=== PATIENT | female | born 1995 | race Caucasian/White ===

== ENCOUNTER 2017-05-23 03:37 | Emergency (ER) | payer MEDICAID, OTHER ==
[~2017-05-23] VITALS: Ht 170.2 cm; Wt 64.4 kg
[~2017-05-23 03:37] MED LIST: AGM875T PO; FLT05NA16 NSEACH
[2017-05-23 04:38] LABS: BILIRUBIN,URINE NEGATIVE (NEGATIVE); KETONES,URINE NEGATIVE (NEGATIVE); LEUKOCYTE ESTERASE ,URINE NEGATIVE (NEGATIVE); NITRITE,URINE NEGATIVE (NEGATIVE); PH,URINE 5 (5-9); PROTEIN,URINE NEGATIVE (NEGATIVE); UROBILINOGEN,URINE NORMAL (NORMAL)
[2017-05-23 05:19] LABS: BASOPHILS % (AUTO) 0 % (0-10); EOSINOPHILS # (AUTO) 0.1 10^3/uL (0.0-0.3); EOSINOPHILS % (AUTO) 1 % (0-10); LYMPHOCYTES # (AUTO) 1.7 X 10^3 (1.0-4.0); LYMPHOCYTES % (AUTO) 17 % (12-44); MEAN CORPUSCULAR HEMOGLOBIN 29 PG (25-34); MEAN CORPUSCULAR HGB CONC 34 G/DL (32-36); MEAN CORPUSCULAR VOLUME 84 FL (80-99); MEAN PLATELET VOLUME 10.2 FL (7.4-10.4); MONOCYTES # (AUTO) 1.2 X 10^3 (0.0-1.0); MONOCYTES % (AUTO) 12 % (0-12); NEUTROPHILS # (AUTO) 7.1 X 10^3 (1.8-7.8); NEUTROPHILS % (AUTO) 70 % (42-75); PLATELET COUNT 275 10^3/uL (130-400); RED BLOOD COUNT 4.75 10^6/uL (4.35-5.85); RED CELL DISTRIBUTION WIDTH 14.4 % (10.0-14.5); WHITE BLOOD COUNT 10.1 10^3/uL (4.3-11.0)
--- NOTE | 2017-05-23 06:27 | ED GU-Female ---
General Chief Complaint: -Female Stated Complaint: 6 WKS PREG,CRAMPING & BLEEDING Nursing Triage Note: PATIENT STATES THAT SHE IS 6 WKS AND THAT SHE BEGAN TO EXPERIENCE CRAMPING AND BLEEDING TONIGHT. SHE VISITED [facility] IN [place] AND HAD A POSITIVE BLOOD TEST TO CONFIRM THE AND A VAG. ULTRASOUND THAT WAS DIFFICULT TO VIEW AND WAS CAUTIONED ABOUT THE POSSIBILITY OF AN ECTOPIC . Nursing Sepsis Screen: No Definite Risk Source: patient Exam Limitations: no limitations (ALIN MOSS MD) History of Present Illness Time seen by provider: 04:08 Initial Comments This 22-year-old young lady at approximately 6 weeks gestational age presents to the emergency room with complaints of pelvic cramping and vaginal bleeding that started early this morning. She was seen May 16 at [facility] in [place] where she received an ultrasound. At that time they reported an ectopic cannot be ruled out. She is referred to Dr. Tuttle in [place] for further evaluation. HCG levels on May 16 were 22,768 and on May 20 were 24,081. Patient reports her cramping pain as 7/10. (ALIN MOSS MD) Allergies and Home Medications Allergies Coded Allergies: iodine (Verified Allergy, 08/04/13) Home Medications Amoxicillin/Clavulanate K 875 Mg Tab, 1 TAB PO BID, #20 Prescribed by: DIANNE CORRAL on 08/04/13 1000 Fluticasone Propionate 16 Gm [place], 2 SPRAYS NSEACH DAILY, #1 Prescribed by: DIANNE CORRAL on 08/04/13 1000 Constitutional: no symptoms reported EENTM: no symptoms reported Respiratory: no symptoms reported Cardiovascular: no symptoms reported Gastrointestinal: no symptoms reported Genitourinary: see HPI : Yes Expected Date of Delivery: Jan 10, 2018 Musculoskeletal: no symptoms reported Skin: no symptoms reported Psychiatric/Neurological: No Symptoms Reported Endocrine: No Symptoms Reported (ALIN MOSS MD) Past Ujhdldg-Csrnub-Xinofj Hx Patient Social History Alcohol Use: Denies Use Recreational Drug Use: No Smoking Status: Never a Smoker Recent Foreign Travel: No Contact w/Someone Who Travel: No Recent Infectious Disease Expo: No Recent Hopitalizations: No Physical Abuse: No Sexual Abuse: No Mistreated: No Fear: No (ALIN MOSS MD) Seasonal Allergies Seasonal Allergies: Yes (ALIN MOSS MD) Surgeries History of Surgeries: Yes Surgeries: Tonsillectomy (ALIN MOSS MD) Respiratory History of Respiratory Disorde: No Respiratory Disorders: Asthma (ALIN MOSS MD) Cardiovascular History of Cardiac Disorders: No (ALIN MOSS MD) Neurological History of Neurological Disord: No (ALIN MOSS MD) Reproductive System : Yes Expected Date of Delivery: Jan 10, 2018 Hx : 2 Hx Para: 1 Hx Total # of Abortions (Spona: 0 Sexually Transmitted Disease: No HIV/AIDS: No (ALIN MOSS MD) Genitourinary History of Genitourinary Disor: No (ALIN MOSS MD) Gastrointestinal History of Gastrointestinal Di: No (ALIN MOSS MD) Musculoskeletal History of Musculoskeletal Dis: No (ALIN MOSS MD) Endocrine History of Endocrine Disorders: No (ALIN MOSS MD) HEENT History of HEENT Disorders: No (ALIN MOSS MD) Cancer History of Cancer: No (ALIN MOSS MD) Psychosocial History of Psychiatric Problem: No Suicide Risk Score: 0 (ALIN MOSS MD) Integumentary History of Skin or Integumenta: No (ALIN MOSS MD) Blood Transfusions History of Blood Disorders: No (ALIN MOSS MD) Physical Exam Vital Signs Vital Sign - Last 12Hours 05/23/17 03:55 Temp 98.2 Pulse 93 Resp 20 B/P (MAP) 115/80 (92) Pulse Ox 99 O2 Delivery Room Air (PATRICIA BOYLE MD) Vital Signs Capillary Refill : Less Than 3 Seconds (ALIN MOSS MD) General Appearance: WD/WN, no apparent distress HEENT: PERRL/EOMI, normal ENT inspection Neck: normal inspection Cardiovascular: regular rate, rhythm, no edema, no murmur Respiratory: lungs clear, normal breath sounds, no respiratory distress, no accessory muscle use Gastrointestinal: normal bowel sounds, non tender, soft Extremities: normal inspection, no pedal edema Neurologic/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: 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 tested, no motor/sensory deficits, alert, normal mood/affect, oriented x 3 Skin: normal color, warm/dry (ALIN MOSS MD) Progress/Results/Core Measures Suspected Sepsis Recent Fever Within 48 Hours: No Infection Criteria Present: None New/Unexplained Altered Menta: No Sepsis Screen: No Definite Risk Sepsis Diagnosis: SIRS Temperature:98.2 Pulse: 93 Respiratory Rate: 20 Laboratory Tests 05/23/17 05:13: White Blood Count 10.1 Blood Pressure 115 /80 Mean: 92 Laboratory Tests 05/23/17 05:13: Platelet Count 275 (ALIN MOSS MD) Results/Orders Lab Results Laboratory Tests Test 05/23/17 04:25 05/23/17 05:13 Range/Units Urine Color YELLOW Urine Clarity SLIGHTLY CLOUDY Urine pH 5 5-9 Urine Specific [place] 1.025 H 1.016-1.022 Urine Protein NEGATIVE NEGATIVE Urine Glucose (UA) NEGATIVE NEGATIVE Urine Ketones NEGATIVE NEGATIVE Urine Nitrite NEGATIVE NEGATIVE Urine Bilirubin NEGATIVE NEGATIVE Urine Urobilinogen NORMAL NORMAL MG/DL Urine Leukocyte Esterase NEGATIVE NEGATIVE Urine RBC (Auto) 5+ H NEGATIVE Urine RBC 50-100 H /HPF Urine WBC NONE /HPF Urine Squamous Epithelial Cells 2-5 /HPF Urine Crystals NONE /LPF Urine Bacteria TRACE /HPF Urine Casts NONE /LPF Urine Mucus MODERATE H /LPF Urine Culture Indicated NO White Blood Count 10.1 4.3-11.0 10^3/uL Red Blood Count 4.75 4.35-5.85 10^6/uL Hemoglobin 13.7 11.5-16.0 G/DL Hematocrit 40 35-52 % Mean Corpuscular Volume 84 80-99 FL Mean Corpuscular Hemoglobin 29 25-34 PG Mean Corpuscular Hemoglobin Concent 34 32-36 G/DL Red Cell Distribution Width 14.4 10.0-14.5 % Platelet Count 275 130-400 10^3/uL Mean Platelet Volume 10.2 7.4-10.4 FL Neutrophils (%) (Auto) 70 42-75 % Lymphocytes (%) (Auto) 17 12-44 % Monocytes (%) (Auto) 12 0-12 % Eosinophils (%) (Auto) 1 0-10 % Basophils (%) (Auto) 0 0-10 % Neutrophils # (Auto) 7.1 1.8-7.8 X 10^3 Lymphocytes # (Auto) 1.7 1.0-4.0 X 10^3 Monocytes # (Auto) 1.2 H 0.0-1.0 X 10^3 Eosinophils # (Auto) 0.1 0.0-0.3 10^3/uL Basophils # (Auto) 0.0 0.0-0.1 10^3/uL Human Chorionic Gonadotropin, Quant 93230 H <5 MIU/ML (PATRICIA BOYLE MD) Medications Given in ED Current Medications Medications Dose Ordered Sig/Cr Route Start Time Stop Time Status Last Admin Dose Admin Ketorolac Tromethamine 30 mg ONCE ONCE IM 05/23/17 06:30 05/23/17 06:31 DC 05/23/17 06:38 30 MG (PATRICIA BOYLE MD) Vital Signs/I&O Vital Sign - Last 12Hours 05/23/17 03:55 Temp 98.2 Pulse 93 Resp 20 B/P (MAP) 115/80 (92) Pulse Ox 99 O2 Delivery Room Air (PATRICIA BOYLE MD) Vital Signs/I&O Capillary Refill : Less Than 3 Seconds (ALIN MOSS MD) Blood Pressure Mean: 92 Progress Note : Time: 06:29 Progress Note Patient's blood type was found to be O-. A RhoGAM injection is being administered. Patient's pain and cramping is escalating. She also passed a large clot. HCG level has dropped to 16,000. A Toradol injection is being given for pain and cramping. Because hCG level is still notable, ultrasound will be performed to rule out ectopic. Care of this patient is being transferred to Dr. Boyle at this time. (ALIN MOSS MD) Departure Communication (Admissions) Progress Notes 0809 and ultrasound consistent with miscarriage. Relayed the findings to the parents. There is no evidence of tubal . (PATRICIA BOYLE MD) Impression Impression: Primary Impression: Incomplete miscarriage Disposition: HOME, SELF-CARE Condition: Stable/Unchanged Departure-Patient Inst. Decision time for Depature: 08:09 (PATRICIA BOYLE MD) Referrals: NO,LOCAL PHYSICIAN (PCP) Primary Care Physician Add. Discharge Instructions: All discharge instructions reviewed with patient and/or family. Voiced understanding. Expect to have a period like flow for perhaps a week. This is likely to be somewhat heavier than a usual. If extremely heavy flow and pain return to emergency room. If continued flow after 7-10 days see your provider. ALIN MOSS MD May 23, 2017 06:27 PATRICIA BOYLE MD May 23, 2017 08:11
[2017-05-23] MEDS ORDERED: KETOROLAC 30 MG/ML VIAL IM ONE (06:30)
[2017-05-23 08:16] VITALS: BP 110/92
--- NOTE | 2017-05-23 08:37 | Diagnostic Imaging Report ---
OB ultrasound. INDICATION: Cramping and heavy bleeding. FINDINGS: There is thickening of the endometrium with heterogenously measuring 2.3 CM in thickness. No internal vascularity is seen. There is no gestational sac identified. The right ovary is 3.5 x 2.6 x 2.4 cm in size. It has a 2.7 cm hypoechoic lesion with internal blood flow seen. The left ovary is obscured by bowel gas. There is no free pelvic hemorrhage or significant fluid. Impression: 1. The endometrial stripe is thickened and heterogenous. Although a very early normal is not entirely ruled out, the heterogeneity is perhaps in favor of a failed with foci of hemorrhage. Occult ectopic cannot be entirely ruled out. 2. Right ovarian 2.7 cm hypoechoic lesion with internal flow demonstrated. This may represent a solid right ovarian mass. A followup exam in 6 weeks is suggested to reassess. Dictated by: Dictated on workstation # [id number]
== END 2017-05-23 08:16 | disposition home or self-care (01) ==
LOC: EDUNIT# 03:37 → ER 03:44
DX: O03.4 Incomplete spontaneous abortion without complication (principal); O99.511 Diseases of the respiratory system complicating pregnancy, first trimester; J45.909 Unspecified asthma, uncomplicated; Z3A.01 Less than 8 weeks gestation of pregnancy; Z90.89 Acquired absence of other organs
CPT/HCPCS: 36415; 76817; 81000; 84702; 85025; 86900; 86901; 96372; 99284

== ENCOUNTER 2017-11-04 17:25 | Emergency (ER) | payer MEDICAID, OTHER ==
[~2017-11-04] VITALS: Ht 170.2 cm; Wt 59.0 kg
[2017-11-04 18:50] LABS: BASOPHILS % (AUTO) 0 % (0-10); EOSINOPHILS # (AUTO) 0.1 10^3/uL (0.0-0.3); EOSINOPHILS % (AUTO) 1 % (0-10); HEMATOCRIT 36 % (35-52); HEMOGLOBIN 12.2 G/DL (11.5-16.0); LYMPHOCYTES # (AUTO) 1.5 X 10^3 (1.0-4.0); LYMPHOCYTES % (AUTO) 15 % (12-44); MEAN CORPUSCULAR HEMOGLOBIN 28 PG (25-34); MEAN CORPUSCULAR HGB CONC 34 G/DL (32-36); MEAN CORPUSCULAR VOLUME 82 FL (80-99); MEAN PLATELET VOLUME 11.4 FL (7.4-10.4); MONOCYTES # (AUTO) 1.1 X 10^3 (0.0-1.0); MONOCYTES % (AUTO) 11 % (0-12); NEUTROPHILS # (AUTO) 7.1 X 10^3 (1.8-7.8); NEUTROPHILS % (AUTO) 73 % (42-75); PLATELET COUNT 209 10^3/uL (130-400); RED BLOOD COUNT 4.34 10^6/uL (4.35-5.85); RED CELL DISTRIBUTION WIDTH 13.3 % (10.0-14.5); WHITE BLOOD COUNT 9.7 10^3/uL (4.3-11.0)
[2017-11-04 19:12] LABS: ALANINE AMINOTRANSFERASE 26 U/L (0-55); ALBUMIN 4.5 GM/DL (3.2-4.5); ALKALINE PHOSPHATASE 121 U/L (40-136); BILIRUBIN,TOTAL 0.6 MG/DL (0.1-1.0); BUN/CREATININE RATIO 15; CARBON DIOXIDE 21 MMOL/L (21-32); CHLORIDE 108 MMOL/L (98-107); CREATININE SERUM 0.73 MG/DL (0.60-1.30); GFR ESTIMATED > 60; GLUCOSE 93 MG/DL (70-105); POTASSIUM 3.9 MMOL/L (3.6-5.0); SODIUM 139 MMOL/L (135-145); TOTAL PROTEIN 7.8 GM/DL (6.4-8.2)
[2017-11-04] MEDS ORDERED: LACTATED RINGERS 1,000 ML IV ONE (19:12)
[2017-11-04] MEDS ORDERED: methylPREDNISolone 125 MG (Solu-MEDROL) VIAL IV STA (19:12)
[2017-11-04] MEDS ORDERED: ACETAMINOPHEN 500 MG TAB (TYLENOL) PO ONE (19:15)
[2017-11-04] MEDS ORDERED: cefTRIAXone INJECTION 1,000 MG in NS (IVPB) 50 ML IV ONE (19:15)
--- NOTE | 2017-11-04 19:21 | ED General ---
General Chief Complaint: Skin/Wound Problems Stated Complaint: RASH ON ARMS AND LEGS Nursing Triage Note: c/o nonpruitic rash with fever/bodyaches. Onset Sat. Reports tick exposure 2 weeks ago. Nursing Sepsis Screen: Possible Sepsis Risk Source of Information: Patient History of Present Illness Date Seen by Provider: November 04, 2017 Time Seen by Provider: 18:20 Initial Comments PT ARRIVES VIA POV WITH MOTHER PT BEGAN HAVING A SEVERE SORE THROAT ON Saturday11/02/17 PT HAS HAD FEVER UP TO 101, HAS HAD CHILLS ALL DAY PT HAS HAD SEVERE JOINT PAIN PT HAS ALSO DEVELOPED A RASH ALL OVER BODY--RASH DOES NOT ITCH AND IS NOT PAINFUL NO KNOWN SICK CONTACTS PT DID HAVE A TICK BITE 2 WEEKS AGO NO HEADACHE OR STIFF NECK HAS NAUSEA WHEN SHE STANDS UP HAS NOT BEEN EATING OR DRINKING MUCH AT ALL DUE TO THROAT PAIN--PT HAS HAD TONSILS REMOVED. VOIDING A NORMAL AMOUNT LMP 10/27/17. NORMAL. NO CONTROL HAS NOT TAKEN ANYTHING FOR SYMPTOMS PCP: CHILD IS ESTABLISHED AT [facility] Allergies and Home Medications Allergies Coded Allergies: iodine (Verified Allergy, 08/04/13) Home Medications Amoxicillin/Clavulanate K 875 Mg Tab, 1 TAB PO BID Prescribed by: DIANNE CORRAL on 08/04/13 1000 Amoxicillin/Potassium Clav 1 Each Tablet, 1 EACH PO BID Prescribed by: DIANNE CORRAL on 11/04/171930 Doxycycline Monohydrate 100 Mg Capsule, 100 MG PO BID Prescribed by: DIANNE CORRAL on 11/04/171930 Fluticasone Propionate 16 Gm [place], 2 SPRAYS NSEACH DAILY Prescribed by: DIANNE CORRAL on 08/04/13 1000 Methylprednisolone 4 Mg Tab.ds.pk, 4 MG PO UD Prescribed by: DIANNE CORRAL on 11/04/171930 Patient Home Medication List Home Medication List Reviewed: Yes Review of Systems Constitutional: see HPI, fever EENTM: see HPI, throat pain; No blurred vision, No hoarseness, No nose congestion Respiratory: no symptoms reported; No cough, No short of breath, No wheezing Cardiovascular: no symptoms reported Gastrointestinal: see HPI; No abdominal pain; nausea; No vomiting Genitourinary: no symptoms reported Musculoskeletal: see HPI, joint pain Skin: see HPI, rash Psychiatric/Neurological: No Symptoms Reported; Denies Headache, Denies Numbness, Denies Paresthesia, Denies Seizure, Denies Tingling Hematologic/Lymphatic: No Symptoms Reported Immunological/Allergic: no symptoms reported Past Zlnzoqt-Czswmp-Lhigan Hx Patient Social History Alcohol Use: Denies Use Recreational Drug Use: No Smoking Status: Never a Smoker Recent Foreign Travel: No Contact w/Someone Who Travel: No Recent Infectious Disease Expo: No Recent Hopitalizations: No Seasonal Allergies Seasonal Allergies: Yes Past Medical History Surgeries: Yes Adenoidectomy, Tonsillectomy Respiratory: Yes Asthma Cardiac: No Neurological: No : No Reproductive Disorders: No Sexually Transmitted Disease: No HIV/AIDS: No Genitourinary: No Gastrointestinal: No Musculoskeletal: No Endocrine: No HEENT: No Cancer: No Psychosocial: No Integumentary: No Blood Disorders: No Physical Exam Vital Signs Vital Signs - First Documented 11/04/17 18:20 Temp 100.6 Pulse 105 Resp 18 O2 Delivery Room Air Capillary Refill : Less Than 3 Seconds General Appearance: No Apparent Distress, Thin, Other (DOES NOT APPEAR ILL) HEENT: PERRL/EOMI, TMs Normal, Moist Mucous Membranes, Pharyngeal Erythema; No Photophobia, No Tonsillar Exudate Neck: Full Range of Motion, Non Tender, Supple, Lymphadenopathy (L) (SLIGHT ANTERIOR/POSTERIOR), Lymphadenopathy (R) (SLIGHT ANTERIOR/POSTERIOR) Respiratory: Normal Breath Sounds, No Accessory Muscle Use, No Respiratory Distress Cardiovascular: Regular Rate, Rhythm, No Edema, No JVD, No Murmur, Normal Peripheral Pulses Gastrointestinal: Normal Bowel Sounds, No Organomegaly, No Pulsatile Mass, Soft , Tenderness (SLIGHT SUPRAPUBIC TENDERNESS) Back: Normal Inspection, No CVA Tenderness, No Vertebral Tenderness Extremity: Normal Capillary Refill, Normal Inspection, Normal Range of Motion, Non Tender, No Calf Tenderness, No Pedal Edema, Other (JOINTS ARE NOT SWOLLEN OR INFLAMED) Neurologic/Psychiatric: Alert, Oriented x3, No Motor/Sensory Deficits, Normal Mood/Affect, 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 FACE/HEAD AND PALMS/SOLES ALL SPARED. ) Progress/Results/Core Measures Suspected Sepsis Recent Fever Within 48 Hours: Yes Infection Criteria Present: Suspected New Infection New/Unexplained Altered Menta: No Sepsis Screen: Possible Sepsis Risk SIRS Temperature:100.6 Pulse: 105 Respiratory Rate: 18 Laboratory Tests 11/04/17 18:30: White Blood Count 9.7 Blood Pressure / Mean: Laboratory Tests 11/04/17 18:30: Creatinine 0.73, Platelet Count 209, Total Bilirubin 0.6 Results/Orders Lab Results Laboratory Tests Test 11/04/17 18:30 11/04/17 19:29 11/04/17 19:43 Range/Units White Blood Count 9.7 4.3-11.0 10^3/uL Red Blood Count 4.34 L 4.35-5.85 10^6/uL Hemoglobin 12.2 11.5-16.0 G/DL Hematocrit 36 35-52 % Mean Corpuscular Volume 82 80-99 FL Mean Corpuscular Hemoglobin 28 25-34 PG Mean Corpuscular Hemoglobin Concent 34 32-36 G/DL Red Cell Distribution Width 13.3 10.0-14.5 % Platelet Count 209 130-400 10^3/uL Mean Platelet Volume 11.4 H 7.4-10.4 FL Neutrophils (%) (Auto) 73 42-75 % Lymphocytes (%) (Auto) 15 12-44 % Monocytes (%) (Auto) 11 0-12 % Eosinophils (%) (Auto) 1 0-10 % Basophils (%) (Auto) 0 0-10 % Neutrophils # (Auto) 7.1 1.8-7.8 X 10^3 Lymphocytes # (Auto) 1.5 1.0-4.0 X 10^3 Monocytes # (Auto) 1.1 H 0.0-1.0 X 10^3 Eosinophils # (Auto) 0.1 0.0-0.3 10^3/uL Basophils # (Auto) 0.0 0.0-0.1 10^3/uL Sodium Level 139 135-145 MMOL/L Potassium Level 3.9 3.6-5.0 MMOL/L Chloride Level 108 H 98-107 MMOL/L Carbon Dioxide Level 21 21-32 MMOL/L Anion Gap 10 5-14 MMOL/L Blood Urea Nitrogen 11 7-18 MG/DL Creatinine 0.73 0.60-1.30 MG/DL Estimat Glomerular Filtration Rate > 60 BUN/Creatinine Ratio 15 Glucose Level 93 70-105 MG/DL Calcium Level 9.0 8.5-10.1 MG/DL Total Bilirubin 0.6 0.1-1.0 MG/DL Aspartate Amino Transf (AST/SGOT) 35 H 5-34 U/L Alanine Aminotransferase (ALT/SGPT) 26 0-55 U/L Alkaline Phosphatase 121 40-136 U/L Total Protein 7.8 6.4-8.2 GM/DL Albumin 4.5 3.2-4.5 GM/DL Serum Test, Qualitative NEGATIVE NEGATIVE Monoscreen NEGATIVE NEGATIVE Group A Streptococcus Screen NEGATIVE NEGATIVE Urine Color YELLOW Urine Clarity CLEAR Urine pH 8 5-9 Urine Specific [place] 1.010 L 1.016-1.022 Urine Protein 1+ H NEGATIVE Urine Glucose (UA) NEGATIVE NEGATIVE Urine Ketones NEGATIVE NEGATIVE Urine Nitrite NEGATIVE NEGATIVE Urine Bilirubin NEGATIVE NEGATIVE Urine Urobilinogen NORMAL NORMAL MG/DL Urine Leukocyte Esterase 1+ H NEGATIVE Urine RBC (Auto) 3+ H NEGATIVE Urine RBC 2-5 H /HPF Urine WBC 2-5 /HPF Urine Squamous Epithelial Cells 10-25 H /HPF Urine Crystals NONE /LPF Urine Bacteria FEW H /HPF Urine Casts NONE /LPF Urine Mucus SMALL H /LPF Urine Culture Indicated NO My Orders Orders - DIANNE CORRAL DO Saline Lock/Iv-Start (11/04/17 18:34) Cbc With Automated Diff (11/04/17 18:34) Comprehensive Metabolic Panel (11/04/17 18:34) Hcg,Qualitative Serum (11/04/17 18:34) Monotest (11/04/17 18:34) Rapid Strep A Screen (11/04/17 18:34) Tick Panel With Lyme Eia (11/04/17 18:34) Saline Lock/Iv-Start (11/04/17 19:12) Lactated Ringers (Lr 1000 Ml Iv Solution (11/04/17 19:12) Methylprednisolone Sod Succ (Solu-Medrol (11/04/17 19:12) Acetaminophen Tablet (Tylenol Tablet) (11/04/17 19:15) Ua Culture If Indicated (11/04/17 19:12) Ceftriaxone Injection (Rocephin Injectio (11/04/17 19:15) Rosales Cristina Virus Profile (11/04/17 19:32) Cmv Igg & Igm Ab (11/04/17 19:32) Anti Streptolysin O Titer (11/04/17 19:32) Urine Culture (11/04/17 20:05) Medications Given in ED Current Medications Medications Dose Ordered Sig/Cr Route Start Time Stop Time Status Last Admin Dose Admin Acetaminophen 1,000 mg ONCE ONCE PO 11/04/17 19:15 11/04/17 19:16 DC 11/04/17 19:24 1,000 MG Ceftriaxone Sodium 1000 mg/ Sodium Chloride 50 ml @ 200 mls/hr ONCE ONCE IV 11/04/17 19:15 11/04/17 19:29 DC 11/04/17 19:24 200 MLS/HR Lactated Ringer's 1,000 ml @ 0 mls/hr Q0M ONCE IV 11/04/17 19:12 11/04/17 19:14 DC 11/04/17 19:24 0 MLS/HR Vital Signs/I&O 11/04/17 18:20 Temp 100.6 Pulse 105 Resp 18 B/P (MAP) O2 Delivery Room Air Capillary Refill : Less Than 3 Seconds Progress Note : Progress Note FEELS BETTER AT DISMISSAL Departure Communication (Admissions) 1952--DISCUSSED WITH DR. BUCIO, BUSINESS APPLICATIONS DEVEL[facility], THEY WILL SEE PT IN FOLLOW UP THIS WEEK Impression Primary Impression: Exanthem Additional Impressions: Pharyngitis RECENT TICK BITE UTI (urinary tract infection) DIFFUSE JOINT PAIN Disposition: 01 HOME, SELF-CARE Condition: Stable Departure-Patient Inst. Referrals: NO,LOCAL PHYSICIAN (PCP) Primary Care Physician KALYN Patient Instructions: Rickettsial Infections (DC), Skin Rash, Sore Throat, Adult (DC), Urinary Tract Infection, Adult (DC), Viral Exanthem (DC) Add. Discharge Instructions: LOTS OF CLEAR LIQUIDS TYLENOL 1 GRAM/ MOTRIN 800 MG 4 TIMES A DAY NEEDED FOR PAIN OR FEVER FOLLOW UP WITH /JJ IN 2-3 DAYS FOR FURTHER CARE RETURN TO ER IF WORSE All discharge instructions reviewed with patient and/or family. Voiced understanding. Scripts Methylprednisolone (Medrol) 4 Mg Tab.ds.pk 4 MG PO UD, #1 PKG Prov: SHAYNA,DIANNE K DO 11/04/17 Doxycycline Monohydrate (Doxycycline Monohydrate) 100 Mg Capsule 100 MG PO BID, #20 CAP Prov: SHAYNA,DIANNE K DO 11/04/17 Amoxicillin/Potassium Clav (Augmentin 875-125 Tablet) 1 Each Tablet 1 EACH PO BID for INFECTION, #20 TAB Prov: DIANNE CORRAL DO 11/04/17 DIANNE CORRAL DO November 04, 2017 19:21
[2017-11-04] MEDS ORDERED: DOXY100C42 PO ×2 (19:31→20:27)
[2017-11-04] MEDS ORDERED: METH4TAB PO ×2 (19:31→20:27)
[2017-11-04] MEDS ORDERED: AMOX-358 PO ×2 (19:31→20:27)
[2017-11-04 19:34] LABS: BILIRUBIN,URINE NEGATIVE (NEGATIVE); CLARITY,URINE CLEAR; COLOR,URINE YELLOW; GLUCOSE, URINE (UA) NEGATIVE (NEGATIVE); KETONES,URINE NEGATIVE (NEGATIVE); LEUKOCYTE ESTERASE ,URINE 1+ (NEGATIVE); NITRITE,URINE NEGATIVE (NEGATIVE); PH,URINE 8 (5-9); PROTEIN,URINE 1+ (NEGATIVE); UROBILINOGEN,URINE NORMAL (NORMAL)
[2017-11-04 19:54] LABS: BACTERIA,URINE FEW /HPF
[2017-11-04 20:23] VITALS: BP 104/63
== END 2017-11-04 20:18 | disposition home or self-care (01) ==
LOC: EDUNIT# 17:25 → ER 17:26
DX: S40.862A Insect bite (nonvenomous) of left upper arm, initial encounter (principal); S40.861A Insect bite (nonvenomous) of right upper arm, initial encounter; S80.861A Insect bite (nonvenomous), right lower leg, initial encounter; S80.862A Insect bite (nonvenomous), left lower leg, initial encounter; J02.9 Acute pharyngitis, unspecified; N39.0 Urinary tract infection, site not specified; B08.4 Enteroviral vesicular stomatitis with exanthem; J45.909 Unspecified asthma, uncomplicated; Z79.51 Long term (current) use of inhaled steroids; Z79.52 Long term (current) use of systemic steroids; Z90.89 Acquired absence of other organs; W57.XXXA Bitten or stung by nonvenomous insect and other nonvenomous arthropods, initial encounter
CPT/HCPCS: 36415; 80053; 81000; 84703; 85025; 86060; 86308; 86618; 86644; 86645; 86663; 86664; 86665; 86666; 86668; 86757; 87088; 87430; 96361; 96365; 96375; 99283

== ENCOUNTER 2017-11-05 21:18 | Observation (INO) | payer MEDICAID ==
[~2017-11-05] VITALS: Ht 170.2 cm; Wt 59.0 kg
[~2017-11-05 21:18] MED LIST changes: +AMOX-358 PO; +DOXY100C42 PO; +METH4TAB PO
[2017-11-05] MEDS ORDERED: methylPREDNISolone 125 MG (Solu-MEDROL) VIAL IV STA (21:30)
[2017-11-05 22:36] LABS: BASOPHILS % (AUTO) 0 % (0-10); EOSINOPHILS % (AUTO) 0 % (0-10); HEMATOCRIT 37 % (35-52); HEMOGLOBIN 12.5 G/DL (11.5-16.0); LYMPHOCYTES % (AUTO) 12 % (12-44); MEAN CORPUSCULAR HEMOGLOBIN 28 PG (25-34); MEAN CORPUSCULAR HGB CONC 34 G/DL (32-36); MEAN CORPUSCULAR VOLUME 82 FL (80-99); MEAN PLATELET VOLUME 11.9 FL (7.4-10.4); MONOCYTES % (AUTO) 11 % (0-12); NEUTROPHILS # (AUTO) 13.3 X 10^3 (1.8-7.8); NEUTROPHILS % (AUTO) 77 % (42-75); PLATELET COUNT 230 10^3/uL (130-400); RED BLOOD COUNT 4.46 10^6/uL (4.35-5.85); RED CELL DISTRIBUTION WIDTH 13.7 % (10.0-14.5); WHITE BLOOD COUNT 17.4 10^3/uL (4.3-11.0)
[2017-11-05 22:57] LABS: ALANINE AMINOTRANSFERASE 36 U/L (0-55); ALBUMIN 4.8 GM/DL (3.2-4.5); ALKALINE PHOSPHATASE 122 U/L (40-136); BILIRUBIN,TOTAL 0.4 MG/DL (0.1-1.0); BUN/CREATININE RATIO 24; CALCIUM 9.8 MG/DL (8.5-10.1); CARBON DIOXIDE 21 MMOL/L (21-32); CHLORIDE 106 MMOL/L (98-107); CREATININE SERUM 0.78 MG/DL (0.60-1.30); GFR ESTIMATED > 60; GLUCOSE 85 MG/DL (70-105); POTASSIUM 3.3 MMOL/L (3.6-5.0); SODIUM 142 MMOL/L (135-145); TOTAL PROTEIN 8.6 GM/DL (6.4-8.2)
[2017-11-05] MEDS ORDERED: KETOROLAC 30 MG/ML VIAL IVP ONE (23:00)
[2017-11-05] MEDS ORDERED: LACTATED RINGERS 1,000 ML IV ONE (23:09)
[2017-11-05] MEDS ORDERED: cefTRIAXone INJECTION 2,000 MG in NS (IVPB) 50 ML IV ONE (23:30)
[2017-11-05] MEDS ORDERED: ACETAMINOPHEN 500 MG TAB (TYLENOL) PO ONE (23:30)
[2017-11-05] MEDS ORDERED: IBUPROFEN 800 MG (MOTRIN) TAB PO ONE (23:30)
[2017-11-05 23:31] LABS: BAND NEUTROPHILS 2 %; BASOPHILS % (MANUAL) 0 %; EOSINOPHILS % (MANUAL) 0 %; LYMPHOCYTES % (MANUAL) 24 %; MONOCYTES % (MANUAL) 6 %; NEUTROPHILS % (MANUAL) 68 %; RBC MORPH NORMAL
--- NOTE | 2017-11-06 00:17 | ED General ---
General Chief Complaint: Skin/Wound Problems Stated Complaint: FEVER;RASH;SORE THROAT;RECENT TICK BITE Nursing Triage Note: PT W/ MOTHER. MOTHER STATES PT WAS SEEN IN ED LAST NIGHT FOR RASH AND FEVER. MOTHER STATES RASH IS WORSE TODAY AND SPREADING. PT C/O FEELING IF HER THROAT IS SWOLLEN TODAY AND HAD TROUBLE BREATHING EARLIER. MOTHER STATES FEVER WAS 103 AROUND 1100. Nursing Sepsis Screen: Possible Sepsis Risk Source of Information: Patient, Family (MOM) History of Present Illness Date Seen by Provider: November 05, 2017 Time Seen by Provider: 21:28 Initial Comments PT SEEN IN ER LAST PM FOR FEVER, SORE THROAT, JOINT PAIN AND RASH PT ALSO HAD A RECENT TICK BITE 2 WEEKS AGO PT WAS GIVEN ROCEPHIN, SOLU-MEDROL AND SENT HOME WITH RX'S FOR DOXYCYCLINE, AUGMENTIN AND MEDROL DOSE PACK PT WAS ADVISED TO FOLLOW UP WITH [facility] TODAY --HAS AN APPOINTMENT ON SATURDAY PT STATES SHE FELT REALLY GOOD THIS AM, THEN BY 11:00 AM TODAY, SHE BEGAN TO FEEL WORSE--TEMP SPIKED TO 103 ( TOOK TYLENOL 1 GRAM AT 11:45 AM TODAY ) , SHE BEGAN TO HAVE JOINT PAIN AND COULDN'T MOVE OR BEND HER KNEES DUE TO PAIN. SHE ALSO STATES THE RASH HAS SPREAD TO HER FACE AND HANDS RASH IS STILL NOT ITCHY OR PAINFUL NO NAUSEA/VOMITING SORE THROAT HAS GOTTEN WORSE TODAY AND STATES THAT IT FEELS LIKE HER THROAT IS CLOSING AND EARLIER IT FELT LIKE SHE COULDN'T BREATHE--PT HAS HAD TONSILLECTOMY/ ADENOIDECTOMY NO ACTUAL SHORTNESS OF BREATH OR WHEEZING NO PROBLEMS SWALLOWING LIQUIDS OR SALIVA--JUST HURTS TO SWALLOW NO HEADACHE OR NECK STIFFNESS NO PROBLEMS URINATING. NO ABDOMINAL PAIN / PELVIC PAIN NO VAGINAL DISCHARGE. LMP 10/27/17. NORMAL. NO CONTROL NO SICK CONTACTS NO HISTORY OF SIMILAR HAS NOT TAKEN ANYTHING ELSE FOR PAIN OR FEVER TODAY, OTHER THAN THE DOSE OF TYLENOL AT 11:45 THIS AM Allergies and Home Medications Allergies Coded Allergies: iodine (Verified Allergy, Unknown, 11/05/17) Home Medications Amoxicillin/Clavulanate K 875 Mg Tab, 1 TAB PO BID Prescribed by: DIANNE CORRAL on 08/04/13 1000 Amoxicillin/Potassium Clav 1 Each Tablet, 1 EACH PO BID Prescribed by: DIANNE CORRAL on 11/04/172026 Doxycycline Monohydrate 100 Mg Capsule, 100 MG PO BID Prescribed by: DIANNE CORRAL on 11/04/172026 Fluticasone Propionate 16 Gm [place], 2 SPRAYS NSEACH DAILY Prescribed by: DIANNE CORRAL on 08/04/13 1000 Methylprednisolone 4 Mg Tab.ds.pk, 4 MG PO UD Prescribed by: DIANNE CORRAL on 11/04/172026 Patient Home Medication List Home Medication List Reviewed: Yes Review of Systems Constitutional: see HPI, chills, fever, malaise, weakness EENTM: see HPI, throat pain, throat swelling; No nose congestion Respiratory: see HPI; No cough, No short of breath, No wheezing Cardiovascular: no symptoms reported Gastrointestinal: No abdominal pain, No constipation, No diarrhea; loss of appetite; No nausea, No vomiting Genitourinary: see HPI; No discharge, No dysuria, No frequency, No hematuria, No hesitancy, No pain : No Musculoskeletal: see HPI, joint pain Skin: see HPI; No pruritus; rash Psychiatric/Neurological: No Symptoms Reported; Denies Headache, Denies Numbness, Denies Paresthesia, Denies Seizure, Denies Tingling, Denies Tremors, Denies Weakness Hematologic/Lymphatic: No Symptoms Reported Immunological/Allergic: no symptoms reported Past Ripjdqk-Lzcfog-Ekrwre Hx Patient Social History Alcohol Use: Denies Use Recreational Drug Use: No Recent Foreign Travel: No Contact w/Someone Who Travel: No Recent Infectious Disease Expo: No Recent Hopitalizations: No Seasonal Allergies Seasonal Allergies: Yes Past Medical History Surgeries: Yes Adenoidectomy, Tonsillectomy Respiratory: Yes Asthma Cardiac: No Neurological: No Hx : 2 Hx Para: 1 Hx Total # of Abortions (Sp): 1 (05/23/17) Reproductive Disorders: No Sexually Transmitted Disease: No HIV/AIDS: No Genitourinary: No Gastrointestinal: No Musculoskeletal: No Endocrine: No HEENT: No Cancer: No Psychosocial: No Integumentary: No Blood Disorders: No Physical Exam Vital Signs Vital Signs - First Documented 11/05/17 21:21 Temp 99.1 Pulse 112 Resp 22 B/P (MAP) 128/78 (95) O2 Delivery Room Air Capillary Refill : Less Than 3 Seconds General Appearance: No Apparent Distress, WD/WN, Thin HEENT: PERRL/EOMI, TMs Normal, Pharyngeal Erythema (VERY SLIGHT) Neck: Full Range of Motion, Normal Inspection, Non Tender, Supple Respiratory: Normal Breath Sounds, No Accessory Muscle Use, No Respiratory Distress Cardiovascular: No Edema, No Gallop, No JVD, No Murmur, Normal Peripheral Pulses, Tachycardia (MILD) Gastrointestinal: Normal Bowel Sounds, No Organomegaly, No Pulsatile Mass, Non Tender, Soft Back: Normal Inspection, No CVA Tenderness, No Vertebral Tenderness Extremity: Normal Capillary Refill, No Calf Tenderness, No Pedal Edema, Other ( NO JOINT SWELLING OR ERYTHEMA OR WARMTH, C/O PAIN WITH MOVEMENT OF JOINTS, BUT NO ACTUAL TENDERNESS TO JOINTS) Neurologic/Psychiatric: Alert, Oriented x3, No Motor/Sensory Deficits, Normal Mood/Affect, sheet heater helper II-XII Norm as Tested Skin: Normal Color, Warm/Dry, Rash (DIFFUSE PATCHY COARSE MACULOPAPULAR RASH-- WORST IS ON LEGS AND ARMS. FEW ON TRUNK, AND NOW WITH PALMS, SOLES AND FACE WITH RASH. ) Progress/Results/Core Measures Suspected Sepsis Recent Fever Within 48 Hours: Yes Infection Criteria Present: Suspected New Infection New/Unexplained Altered Menta: No Sepsis Screen: Possible Sepsis Risk SIRS Temperature:101.8 Pulse: 110 Respiratory Rate: 22 Laboratory Tests 11/05/17 22:02: White Blood Count 17.4H Blood Pressure 118 /81 Mean: 95 Laboratory Tests 11/05/17 22:02: Creatinine 0.78, Platelet Count 230, Total Bilirubin 0.4 Results/Orders Lab Results Laboratory Tests Test 11/05/17 22:02 11/05/17 23:27 Range/Units White Blood Count 17.4 H 4.3-11.0 10^3/uL Red Blood Count 4.46 4.35-5.85 10^6/uL Hemoglobin 12.5 11.5-16.0 G/DL Hematocrit 37 35-52 % Mean Corpuscular Volume 82 80-99 FL Mean Corpuscular Hemoglobin 28 25-34 PG Mean Corpuscular Hemoglobin Concent 34 32-36 G/DL Red Cell Distribution Width 13.7 10.0-14.5 % Platelet Count 230 130-400 10^3/uL Mean Platelet Volume 11.9 H 7.4-10.4 FL Neutrophils (%) (Auto) 77 H 42-75 % Lymphocytes (%) (Auto) 12 12-44 % Monocytes (%) (Auto) 11 0-12 % Eosinophils (%) (Auto) 0 0-10 % Basophils (%) (Auto) 0 0-10 % Neutrophils # (Auto) 13.3 H 1.8-7.8 X 10^3 Lymphocytes # (Auto) 2.0 1.0-4.0 X 10^3 Monocytes # (Auto) 2.0 H 0.0-1.0 X 10^3 Eosinophils # (Auto) 0.0 0.0-0.3 10^3/uL Basophils # (Auto) 0.0 0.0-0.1 10^3/uL Neutrophils % (Manual) 68 % Lymphocytes % (Manual) 24 % Monocytes % (Manual) 6 % Eosinophils % (Manual) 0 % Basophils % (Manual) 0 % Band Neutrophils 2 % Blood Morphology Comment NORMAL Sodium Level 142 135-145 MMOL/L Potassium Level 3.3 L 3.6-5.0 MMOL/L Chloride Level 106 98-107 MMOL/L Carbon Dioxide Level 21 21-32 MMOL/L Anion Gap 15 H 5-14 MMOL/L Blood Urea Nitrogen 19 H 7-18 MG/DL Creatinine 0.78 0.60-1.30 MG/DL Estimat Glomerular Filtration Rate > 60 BUN/Creatinine Ratio 24 Glucose Level 85 70-105 MG/DL Calcium Level 9.8 8.5-10.1 MG/DL Total Bilirubin 0.4 0.1-1.0 MG/DL Aspartate Amino Transf (AST/SGOT) 33 5-34 U/L Alanine Aminotransferase (ALT/SGPT) 36 0-55 U/L Alkaline Phosphatase 122 40-136 U/L Total Protein 8.6 H 6.4-8.2 GM/DL Albumin 4.8 H 3.2-4.5 GM/DL My Orders Orders - DIANNE CORRAL DO Saline Lock/Iv-Start (11/05/17 21:28) Cbc With Automated Diff (11/05/17 21:28) Comprehensive Metabolic Panel (11/05/17 21:28) Methylprednisolone Sod Succ (Solu-Medrol (11/05/17 21:30) Ct Neck (Soft Tissue) Wo (11/05/17 22:08) Ketorolac Injection (Toradol Injection) (11/05/17 23:00) Lactated Ringers (Lr 1000 Ml Iv Solution (11/05/17 23:09) Manual Differential (11/05/17 22:02) Ceftriaxone Injection (Rocephin Injectio (11/05/17 23:30) Throat Culture (11/05/17 23:20) Acetaminophen Tablet (Tylenol Tablet) (11/05/17 23:30) Ibuprofen Tablet (Motrin Tablet) (11/05/17 23:30) Syphilis Antibody Screen (11/05/17 23:29) Medications Given in ED Current Medications Medications Dose Ordered Sig/Cr Route Start Time Stop Time Status Last Admin Dose Admin Ketorolac Tromethamine 30 mg ONCE ONCE IVP 11/05/17 23:00 11/05/17 23:01 DC 11/05/17 22:56 30 MG Lactated Ringer's 1,000 ml @ 0 mls/hr Q0M ONCE IV 11/05/17 23:09 11/05/17 23:21 DC 11/05/17 23:18 1,000 MLS/HR Vital Signs/I&O 11/05/17 21:21 Temp 99.1 Pulse 112 Resp 22 B/P (MAP) 128/78 (95) O2 Delivery Room Air Capillary Refill : Less Than 3 Seconds Blood Pressure Mean: 95 Progress Note : Progress Note UNEVENTFUL ER STAY Diagnostic Imaging Comments CT NECK SOFT TISSUES--NO ACUTE PROCESS, MILD,NON-SPECIFIC LYMPHADENOPATHY IN ANTERIOR LEFT CHEST WALL--PER [facility] VIA FAX @ 2550 Reviewed: Reviewed by Me Departure Communication (Admissions) [id number]--SPOKE WITH DR. BUCIO, ACCEPTS PT FOR ADMIT. Impression Primary Impression: Exanthem Additional Impressions: Fever Joint pain Pharyngitis RECENT TICK BITE Disposition: ADMITTED INPATIENT Condition: Stable Admissions Decision to Admit Reason: Admit from ER (General) Decision to Admit/Date: November 05, 2017 Time/Decision to Admit Time: 23:20 Departure-Patient Inst. Referrals: NO,LOCAL PHYSICIAN (PCP/Family) Primary Care Physician DIANNE CORRAL DO November 06, 2017 00:17
[2017-11-06] MEDS ORDERED: D5 1/2 NS W/KCL 20 MEQ/L 1,000 ML IV ONE (00:31)
[2017-11-06] MEDS ORDERED: NS (IVPB) 100 ML ONE (00:32)
[2017-11-06] MEDS ORDERED: DOXYCYCLINE 100 MG INJ (VIBRAMYCIN) ONE (00:32)
[2017-11-06] MEDS ORDERED: fentaNYL INJECTION 100 MCG/2 ML AMP IV PRN (01:00)
[2017-11-06] MEDS: D5 1/2 NS W/KCL 20 MEQ/L 1,000 ML IV SCH ×5 (01:20→23:00)
[2017-11-06] MEDS: DOXYCYCLINE INJECTION 100 MG in NS (IVPB) 100 ML IV SCH ×2 (01:20→13:31)
[2017-11-06 04:55] VITALS: BP 100/60
[2017-11-06] MEDS: methylPREDNISolone 125 MG (Solu-MEDROL) VIAL IVP SCH ×3 (06:06→17:23)
[2017-11-06 06:10] LABS: BASOPHILS % (AUTO) 0 % (0-10); EOSINOPHILS % (AUTO) 0 % (0-10); HEMATOCRIT 32 % (35-52); HEMOGLOBIN 10.6 G/DL (11.5-16.0); LYMPHOCYTES # (AUTO) 0.7 X 10^3 (1.0-4.0); LYMPHOCYTES % (AUTO) 7 % (12-44); MEAN CORPUSCULAR HEMOGLOBIN 28 PG (25-34); MEAN CORPUSCULAR HGB CONC 34 G/DL (32-36); MEAN CORPUSCULAR VOLUME 83 FL (80-99); MEAN PLATELET VOLUME 11.4 FL (7.4-10.4); MONOCYTES # (AUTO) 0.4 X 10^3 (0.0-1.0); MONOCYTES % (AUTO) 4 % (0-12); NEUTROPHILS # (AUTO) 8.4 X 10^3 (1.8-7.8); NEUTROPHILS % (AUTO) 89 % (42-75); PLATELET COUNT 198 10^3/uL (130-400); RED BLOOD COUNT 3.81 10^6/uL (4.35-5.85); RED CELL DISTRIBUTION WIDTH 13.3 % (10.0-14.5); WHITE BLOOD COUNT 9.5 10^3/uL (4.3-11.0)
[2017-11-06 06:43] LABS: ALANINE AMINOTRANSFERASE 28 U/L (0-55); ALBUMIN 3.8 GM/DL (3.2-4.5); ALKALINE PHOSPHATASE 95 U/L (40-136); BILIRUBIN,TOTAL 0.3 MG/DL (0.1-1.0); BUN/CREATININE RATIO 22; CALCIUM 8.8 MG/DL (8.5-10.1); CARBON DIOXIDE 19 MMOL/L (21-32); CHLORIDE 111 MMOL/L (98-107); CREATININE SERUM 0.68 MG/DL (0.60-1.30); GFR ESTIMATED > 60; GLUCOSE 207 MG/DL (70-105); POTASSIUM 4.1 MMOL/L (3.6-5.0); SODIUM 139 MMOL/L (135-145); TOTAL PROTEIN 6.7 GM/DL (6.4-8.2)
[2017-11-06 08:00] VITALS: BP 112/61
--- NOTE | 2017-11-06 08:41 | Diagnostic Imaging Report ---
PROCEDURE: CT neck soft tissue without contrast. TECHNIQUE: Multiple contiguous axial images were obtained through the neck without the use of intravenous contrast. INDICATION: Lyme disease. Weakness. Rash. Trouble breathing. COMPARISON: None. FINDINGS: Infraclavicular conglomerate lymphadenopathy on the left. Individual lymph nodes measure up to 1.2 cm and 0.9 cm, 1.3 cm and 1.6 cm short axis dimension. No lymphadenopathy in the neck. No mass or fluid collection is seen in the neck on this noncontrast exam. The lung apices are clear. No acute osseous findings. The thyroid and major salivary glands are grossly unremarkable. The airway is patent. The tongue base and epiglottis are unremarkable. IMPRESSION: Left infraclavicular lymphadenopathy. No necrotic lymph nodes. The neck is otherwise unremarkable on this noncontrast exam. Dictated by: Dictated on workstation # [id number]
[2017-11-06 12:00] VITALS: BP 108/56
[2017-11-06 15:45] VITALS: BP 117/77
[2017-11-06] MEDS ORDERED: ONDANSETRON 4 MG/2 ML (SDV) Z0FRAN ONE (16:08)
[2017-11-06] MEDS ORDERED: ONDANSETRON 4 MG/2 ML (SDV) Z0FRAN IVP PRN (16:15)
[2017-11-06 19:20] VITALS: BP 105/62
[2017-11-06] MEDS: IBUPROFEN 800 MG (MOTRIN) TAB PO PRN (21:13)
--- NOTE | 2017-11-06 21:29 | History & Physicial (CHS) ---
HPI History of Present Illness: 22 yo female presented to ER for second time last night. She notes that on Saturday (4 days ago) she had sore throat, fever and felt poorly. She then developed pain in multiple joints- worst in wrists, but also in ankles and diffusely throughout her body, particularly in her calf area. She also developed an erythematous rash that started near wrists and ankles and spread all over, she came to the ER and was given doxycycline for possible tick borne illness. She does note a tick that was attached at least overnight about 2-3 weeks ago. She thought she was getting better and her rash was improving when she suddenly felt worse again with feverish feeling and recurring rash, to the point that she felt badly enough to come back in. This morning her rash is essentially resolved but she does have persistent generalized joint pain and sore throat. Her family wonders about rheumatic fever- her grandmother had it and noted that she would have recurrent rash when she had episodes. Date seen by provider: November 06, 2017 Time Seen by Provider: 11:34 Attending Physician Corey Cordero MD PCP No,Local Physician Consult Date of Admission November 05, 2017 at 23:20 Home Medications Home Medications Reviewed patient Home Medication Reconciliation performed by pharmacy medication reconciliations highway maintenance technician and/or nursing. Patients Allergies have been reviewed. Allergies Coded Allergies: iodine (Verified Allergy, Unknown, 11/05/17) [id number] Hx Patient Social History Alcohol Use: Denies Use Recreational Drug Use: No Smoking Status: Never a Smoker Recent Foreign Travel: No Contact w/other who traveled: No Recent Hopitalizations: No Recent Infectious Disease Expo: No Physical Abuse Screen: No Sexual Abuse: No Past Medical History Denies PMHx Family Medical History Significant Family History: Asthma Family History: Asthma 19 MOTHER FH: breast cancer MATERNAL GRANDMOTHER Kidney stone 19 MOTHER Thyroid disease 19 MOTHER G8 SISTER Review of Systems (CHC) Constitutional: chills, fever, malaise EENTM: throat pain Respiratory: no symptoms reported Cardiovascular: no symptoms reported Gastrointestinal: no symptoms reported Genitourinary: no symptoms reported Musculoskeletal: see HPI Skin: see HPI Psychiatric/Neurological: No Symptoms Reported Reviewed Test Results Reviewed Test Results Lab Laboratory Tests Test 11/05/17 22:02 11/05/17 23:27 11/06/17 05:45 Range/Units White Blood Count 17.4 H 9.5 4.3-11.0 10^3/uL Red Blood Count 4.46 3.81 L 4.35-5.85 10^6/uL Hemoglobin 12.5 10.6 L 11.5-16.0 G/DL Hematocrit 37 32 L 35-52 % Mean Corpuscular Volume 82 83 80-99 FL Mean Corpuscular Hemoglobin 28 28 25-34 PG Mean Corpuscular Hemoglobin Concent 34 34 32-36 G/DL Red Cell Distribution Width 13.7 13.3 10.0-14.5 % Platelet Count 230 198 130-400 10^3/uL Mean Platelet Volume 11.9 H 11.4 H 7.4-10.4 FL Neutrophils (%) (Auto) 77 H 89 H 42-75 % Lymphocytes (%) (Auto) 12 7 L 12-44 % Monocytes (%) (Auto) 11 4 0-12 % Eosinophils (%) (Auto) 0 0 0-10 % Basophils (%) (Auto) 0 0 0-10 % Neutrophils # (Auto) 13.3 H 8.4 H 1.8-7.8 X 10^3 Lymphocytes # (Auto) 2.0 0.7 L 1.0-4.0 X 10^3 Monocytes # (Auto) 2.0 H 0.4 0.0-1.0 X 10^3 Eosinophils # (Auto) 0.0 0.0 0.0-0.3 10^3/uL Basophils # (Auto) 0.0 0.0 0.0-0.1 10^3/uL Neutrophils % (Manual) 68 % Lymphocytes % (Manual) 24 % Monocytes % (Manual) 6 % Eosinophils % (Manual) 0 % Basophils % (Manual) 0 % Band Neutrophils 2 % Blood Morphology Comment NORMAL Sodium Level 142 139 135-145 MMOL/L Potassium Level 3.3 L 4.1 3.6-5.0 MMOL/L Chloride Level 106 111 H 98-107 MMOL/L Carbon Dioxide Level 21 19 L 21-32 MMOL/L Anion Gap 15 H 9 5-14 MMOL/L Blood Urea Nitrogen 19 H 15 7-18 MG/DL Creatinine 0.78 0.68 0.60-1.30 MG/DL Estimat Glomerular Filtration Rate > 60 > 60 BUN/Creatinine Ratio 24 22 Glucose Level 85 207 H 70-105 MG/DL Calcium Level 9.8 8.8 8.5-10.1 MG/DL Total Bilirubin 0.4 0.3 0.1-1.0 MG/DL Aspartate Amino Transf (AST/SGOT) 33 23 5-34 U/L Alanine Aminotransferase (ALT/SGPT) 36 28 0-55 U/L Alkaline Phosphatase 122 95 40-136 U/L Total Protein 8.6 H 6.7 6.4-8.2 GM/DL Albumin 4.8 H 3.8 3.2-4.5 GM/DL Radiology 11/05/17 CT neck: IMPRESSION: Left infraclavicular lymphadenopathy. No necrotic lymph nodes. The neck is otherwise unremarkable on this noncontrast exam. Physical Exam-([facility]) Physical Exam Vital Signs VS - Last 72 Hours, by Label 11/05/17 11/06/17 11/06/17 11/06/17 21:21 00:07 00:15 00:15 Temp 99.1 101.8 98.9 98.9 Pulse 112 110 Resp 22 22 B/P (MAP) 128/78 (95) 118/81 Pulse Ox 98 O2 Delivery Room Air Room Air 11/06/17 11/06/17 11/06/17 11/06/17 00:15 04:55 08:00 08:00 Temp 97.9 97.5 Pulse 62 80 Resp 20 18 B/P (MAP) 100/60 (73) 112/61 (78) Pulse Ox 97 99 99 O2 Delivery Room Air Room Air Room Air Room Air 11/06/17 11/06/17 11/06/17 11/06/17 12:00 15:45 19:20 19:40 Temp 98.1 97.1 97.7 Pulse 75 56 61 Resp 16 16 17 B/P (MAP) 108/56 (73) 117/77 (90) 105/62 (76) Pulse Ox 95 98 98 O2 Delivery Room Air Room Air Room Air Room Air Capillary Refill : Less Than 3 Seconds General Appearance: WD/WN, no apparent distress HEENT: pharynx normal Respiratory: lungs clear, normal breath sounds Cardiovascular: regular rate, rhythm, no murmur Gastrointestinal: normal bowel sounds, non tender, soft Extremities: no pedal edema Neurologic/Psychiatric: alert Skin: normal color, warm/dry; No rash Assessment/Plan Assessment/Plan Admission Status: Observation (1) Pharyngitis Status: Acute (2) Fever Status: Acute Assessment & Plan: Suspect infection related, unclear type of infection. Work- up at prior ER visit reveals negative Lyme testing, CMV testing. 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 RMSF serology, erlichia serology pending. ASO is elevated. Suspect RMSF given localization of rash and extension to palms and soles but is not resolved. Continue doxycycline and follow-up pending labs. Check echo in the am for further acute rheumatic fever work-up/rule out given pharyngitis ( although should be preceding, not concurrent) and elevated ASO. Family does have picture of rash which does not appear consistent with erythema marginatum. (3) Joint pain Status: Acute Assessment & Plan: Presumed to be infection related, work-up in progress noted above. Treat symptomatically for now. (4) Exanthem Status: Resolved Assessment & Plan: Currently resolved, but had near resolution with recurrence once already, will monitor. Family has picture of rash which is macular and erythematous with lesions appearing to be from 0.5 to 1 cm and rounded. (5) DVT prophylaxis Status: Acute Assessment & [facility] Clinical Quality Measures DVT/VTE Risk/Contraindication: Risk Factor Score Per Nursin RFS Level Per Nursing on Admit: 1=Low/No VTE PPX COREY CORDERO MD November 06, 2017 21:29
[2017-11-06] MEDS ORDERED: cefTRIAXone 2 GM/NS 50 ML IVPB IV SCH ×2 (22:00)
[2017-11-06] MEDS: ACETAMINOPHEN 500 MG TAB (TYLENOL) PO PRN (23:00)
[2017-11-07 00:24] VITALS: BP 119/66
[2017-11-07] MEDS: DOXYCYCLINE INJECTION 100 MG in NS (IVPB) 100 ML IV SCH (00:31)
[2017-11-07 04:59] LABS: HEMOGLOBIN 10.3 G/DL (11.5-16.0); MEAN PLATELET VOLUME 11.6 FL (7.4-10.4); RED BLOOD COUNT 3.72 10^6/uL (4.35-5.85); RED CELL DISTRIBUTION WIDTH 13.6 % (10.0-14.5); WHITE BLOOD COUNT 12.8 10^3/uL (4.3-11.0)
[2017-11-07 05:58] LABS: BUN/CREATININE RATIO 18; CALCIUM 8.6 MG/DL (8.5-10.1); CARBON DIOXIDE 18 MMOL/L (21-32); CHLORIDE 111 MMOL/L (98-107); CREATININE SERUM 0.61 MG/DL (0.60-1.30); GFR ESTIMATED > 60; GLUCOSE 157 MG/DL (70-105); POTASSIUM 4.3 MMOL/L (3.6-5.0); SODIUM 139 MMOL/L (135-145)
[2017-11-07] MEDS: D5 1/2 NS W/KCL 20 MEQ/L 1,000 ML IV SCH ×2 (06:48→16:28)
[2017-11-07 08:00] VITALS: BP 123/85
[2017-11-07] MEDS ORDERED: CALCIUM CARBONATE 500 MG (TUMS) TAB.CHEW PO SCH (09:00)
[2017-11-07] MEDS: ACETAMINOPHEN 500 MG TAB (TYLENOL) PO PRN (13:55)
[2017-11-07] MEDS: IBUPROFEN 800 MG (MOTRIN) TAB PO PRN (14:58)
[2017-11-07 15:40] VITALS: BP 124/80
--- NOTE | 2017-11-07 15:47 | Diagnostic Imaging Report ---
INDICATION: Pain in the wrists bilaterally as well as fever and rash. TIME OF EXAM: 02:45 p.m. FINDINGS: AP and lateral views of both wrists were obtained. Carpi are unremarkable bilaterally. Distal radius and ulna are intact bilaterally. There are no fractures. No osseous erosions are seen. No soft tissue swelling is identified. IMPRESSION: Unremarkable bilateral wrist radiographs. Dictated by: Dictated on workstation # [id number]
[2017-11-07] MEDS ORDERED: DOXYCYCLINE 100 MG (VIBRAMYCIN) TABLET PO SCH (17:00)
[2017-11-07] MEDS ORDERED: DOXY100T2 PO (17:12)
[2017-11-07] MEDS ORDERED: AMOX-358 PO (17:12)
[2017-11-07] MEDS ORDERED: METH4TAB PO (17:13)
[2017-11-07] MEDS ORDERED: IBUP-1780 PO (17:14)
--- NOTE | 2017-11-07 17:17 | Discharge Instructions ---
Discharge [facility] Discharge Medications New, Converted or Re-Newed RX: Transmitted to Pharmacy New Medications: Ibuprofen (Ibuprofen) 800 Mg Tablet 800 MG PO Q8H, #30 TAB 0 Refills Continued Medications: Amoxicillin/Potassium Clav (Augmentin 875-125 Tablet) 1 Each Tablet 1 EACH PO BID, #20 TAB 0 Refills Doxycycline Hyclate (Doxycycline Hyclate) 100 Mg Tablet 100 MG PO BID, #20 TAB Discontinued Medications: Methylprednisolone (Medrol) 4 Mg Tab.ds.pk 4 MG PO UD, PKG Patient Instructions Goal/Follow Up Appt: Follow up with Dr. Cordero at [facility] on 11/15 at 1:20 pm. Patient Instructions: Take the doxycycline and Augmentin that were prescribed from the ER as well as ibuprofen. Follow up with Dr. Cordero for the pending lab results at your follow-up visit. (Labs pending are BEV for lupus, anti-CCP for rheumatoid arthritis, HIV, Hep B, Hep C, syphillis and parvovirus testing) Return to The Hospital For: Inability to keep down medications, pain uncontrolled with ibuprofen Activity & Diet Discharge Diet: Regular Diet Activity as Tolerated: Yes Copy Copies To 1: COREY CORDERO MD, BETHANY N MD November 07, 2017 17:17
--- NOTE | 2017-11-07 17:19 | Discharge Summary ---
Diagnosis/Chief Complaint Date of Admission November 05, 2017 at 23:20 Date of Discharge November 07, 2017 Admission Diagnosis Admission Diagnosis (1) Pharyngitis (2) Fever (3) Joint pain (4) [place] Discharge Diagnosis (1) Pharyngitis GAS rapid and throat culture negative. [place] spot negative and EBV serology consistent with historical infection, CMV serology negative. (2) Fever Status: Acute Assessment & Plan: Suspect infection related, unclear type of infection. Work- up at prior ER visit reveals negative Lyme testing, RMSF serology, erlichia serology, CMV serology. Echo done to help rule out acute rheumatic fever as she did meet some criteria- echo prelim read unremarkable. Suspected possible RMSF even with negative testing as it can be negative in early disease, complete treatment with doxycycline and augmentin. Consider rechecking RMSF serology outpatient as well as repeat ASO to trend. HIV, Hep B, Hep, RPR and parvovirus serology still pending at d/c. (3) Joint pain Concern for rheumatic condition given the rash and fever. Wrist x-rays unremarkable. BEV pending at d/c. RA negative, CCP pending. Consider adult Still disease, consider Rheum consult if remainder of lab work and follow up unrevealing. Ibuprofen 800 mg TID prescribed on d/c. (4) [place] Relapsing and remitting with variable presentations throughout her visits and hospital stay- from maculopapular erythematous rash over arms and palms and soles to erythematous non-raised lesions over both cheeks, to no rash at all at times. Work up as noted above. Chief Complaint/HPI Chief Complaint/HPI 22 yo female presented to ER for second time last night. She notes that on Saturday (4 days ago) she had sore throat, fever and felt poorly. She then developed pain in multiple joints- worst in wrists, but also in ankles and diffusely throughout her body, particularly in her calf area. She also developed an erythematous rash that started near wrists and ankles and spread all over, she came to the ER and was given doxycycline for possible tick borne illness. She does note a tick that was attached at least overnight about 2-3 weeks ago. She thought she was getting better and her rash was improving when she suddenly felt worse again with feverish feeling and recurring rash, to the point that she felt badly enough to come back in. This morning her rash is essentially resolved but she does have persistent generalized joint pain and sore throat. Her family wonders about rheumatic fever- her grandmother had it and noted that she would have recurrent rash when she had episodes. Discharge Summary-Simple/Stand Consultations Discharge Physical Examination Allergies: Coded Allergies: iodine (Verified Allergy, Unknown, 11/05/17) Vitals & I&Os Vital Sign - Last 12Hours Date Time Temp Pulse Resp B/P (MAP) Pulse Ox O2 Delivery O2 Flow Rate FiO2 11/07/17 15:40 97.1 68 16 124/80 (95) 97 Room Air Intake and Output 11/07/17 00:00 Intake Total 3060 ml Balance 3060 ml General Appearance: Alert, No Acute Distress Respiratory: Clear to Auscultation, Normal Air Movement Cardiovascular: Regular Rate, No Murmurs Abdominal: Normal Bowel Sounds, Soft Skin: Other (erythema over both cheeks, no subcutaneous nodules) Neuro: Normal Speech Psych/Mental Status: Mental Status NL Hospital Course See final discharge diagnosis. Labs Laboratory Tests Test 11/05/17 23:27 11/06/17 05:45 11/07/17 04:11 11/07/17 14:20 Range/Units White Blood Count 9.5 12.8 H 4.3-11.0 10^3/uL Red Blood Count 3.81 L 3.72 L 4.35-5.85 10^6/uL Hemoglobin 10.6 L 10.3 L 11.5-16.0 G/DL Hematocrit 32 L 31 L 35-52 % Mean Corpuscular Volume 83 83 80-99 FL Mean Corpuscular Hemoglobin 28 28 25-34 PG Mean Corpuscular Hemoglobin Concent 34 33 32-36 G/DL Red Cell Distribution Width 13.3 13.6 10.0-14.5 % Platelet Count 198 229 130-400 10^3/uL Mean Platelet Volume 11.4 H 11.6 H 7.4-10.4 FL Neutrophils (%) (Auto) 89 H 42-75 % Lymphocytes (%) (Auto) 7 L 12-44 % Monocytes (%) (Auto) 4 0-12 % Eosinophils (%) (Auto) 0 0-10 % Basophils (%) (Auto) 0 0-10 % Neutrophils # (Auto) 8.4 H 1.8-7.8 X 10^3 Lymphocytes # (Auto) 0.7 L 1.0-4.0 X 10^3 Monocytes # (Auto) 0.4 0.0-1.0 X 10^3 Eosinophils # (Auto) 0.0 0.0-0.3 10^3/uL Basophils # (Auto) 0.0 0.0-0.1 10^3/uL Sodium Level 139 139 135-145 MMOL/L Potassium Level 4.1 4.3 3.6-5.0 MMOL/L Chloride Level 111 H 111 H 98-107 MMOL/L Carbon Dioxide Level 19 L 18 L 21-32 MMOL/L Anion Gap 9 10 5-14 MMOL/L Blood Urea Nitrogen 15 11 7-18 MG/DL Creatinine 0.68 0.61 0.60-1.30 MG/DL Estimat Glomerular Filtration Rate > 60 > 60 BUN/Creatinine Ratio 22 18 Glucose Level 207 H 157 H 70-105 MG/DL Calcium Level 8.8 8.6 8.5-10.1 MG/DL Total Bilirubin 0.3 0.1-1.0 MG/DL Aspartate Amino Transf (AST/SGOT) 23 5-34 U/L Alanine Aminotransferase (ALT/SGPT) 28 0-55 U/L Alkaline Phosphatase 95 40-136 U/L Total Protein 6.7 6.4-8.2 GM/DL Albumin 3.8 3.2-4.5 GM/DL Erythrocyte Sedimentation Rate 17 0-20 MM/HR C-Reactive Protein High Sensitivity 2.47 H 0.00-0.50 MG/DL Rheumatoid Factor NEGATIVE NEGATIVE Radiology Reviewed 11/05/17 CT neck: IMPRESSION: Left infraclavicular lymphadenopathy. No necrotic lymph nodes. The neck is otherwise unremarkable on this noncontrast exam. Discharge Instructions to patient/family Please see electronic discharge instructions given to patient. Discharge Medications Reviewed and agree with Discharge Medication list on patient's Discharge Instruction sheet Clinical Quality Measures DVT/VTE Risk/Contraindication: Risk Factor Score Per Nursin RFS Level Per Nursing on Admit: 1=Low/No VTE PPX Copy Copies To 1: COREY BUCIO MD, BETHANY N MD November 07, 2017 5:19 pm
[2017-11-07 17:31] VITALS: BP 124/80
[2017-11-08 06:41] LABS: HEPATITIS C ANTIBODY C Non-Reactive (Non-Reactive)
== END 2017-11-07 17:15 | disposition home or self-care (01) ==
LOC: EDUNIT# 21:18 → ER 21:19 → 4TH 21:20 → UNDOADMOB 23:20 → 4TH 23:20 → UNDOADMOB 11-06 00:15 → 4TH 11-06 00:15 → UNDODISOB 11-07 17:18
PROVIDERS: ADMIT Family Medicine; ATTEND Family Medicine
DX: J02.9 Acute pharyngitis, unspecified (principal); R50.9 Fever, unspecified; M25.571 Pain in right ankle and joints of right foot; M25.572 Pain in left ankle and joints of left foot; M25.532 Pain in left wrist; R21 Rash and other nonspecific skin eruption
CPT/HCPCS: 36415; 70490; 80048; 80053; 82728; 85007; 85025; 85027; 85652; 86038; 86141; 86200; 86430; 86703; 86747; 86780; 86803; 87070; 87340; 93005; 93306; 96361; 96365; 96375; G0378

== ENCOUNTER 2017-11-08 20:23 | Emergency (ER) | payer MEDICAID ==
[~2017-11-08] VITALS: Ht 170.2 cm; Wt 57.2 kg
[~2017-11-08 20:23] MED LIST changes: +DOXY100T2 PO; +IBUP-1780 PO
--- NOTE | 2017-11-08 22:22 | ED General ---
General Chief Complaint: General Problems/Pain Stated Complaint: ACHES THROUGHOUT BODY,RASH,DISCHARGED YESTERDAY Nursing Triage Note: HERE TO REPORT BODY ACHES ONGOING. DISMISSED FROM HOSPITAL YESTERDAY WITH ACUTE PHARYNGITIS, NO STREP, AND ON ANTIBIOTICS. Nursing Sepsis Screen: No Definite Risk Source of Information: Patient Exam Limitations: No Limitations History of Present Illness Date Seen by Provider: November 08, 2017 Time Seen by Provider: 21:30 Initial Comments The patient presents to ER by private conveyance with chief complaint that she was recently hospitalized for a rash and had a workup. She did have a tick on her and she was started on doxycycline as well as some Tylenol Motrin. She says that her rash is getting better but she is more concerned because she still having body aches malaise and she had a fever of 99.9 tonight for which she took some Tylenol before coming in. She is not vomiting, chilling, having diarrhea or any sick contacts. She has not traveled outside the [place]. She does not have any immunocompromise disease. She does not use IV drugs. She is not on control but she is not sexually active and she does use condoms. She has a plan to follow up with her clinical trial assistant to get started on some control and about 1-2 weeks. Allergies and Home Medications Allergies Coded Allergies: iodine (Verified Allergy, Unknown, 11/05/17) Home Medications Amoxicillin/Potassium Clav 1 Each Tablet, 1 EACH PO BID, (Reported) Doxycycline Hyclate 100 Mg Tablet, 100 MG PO BID, (Reported) Ibuprofen 800 Mg Tablet, 800 MG PO Q8H Prescribed by: COREY BUCIO on 11/07/17 7934 Patient Home Medication List Home Medication List Reviewed: Yes Review of Systems Constitutional: No chills, No diaphoresis; fever, malaise EENTM: No ear discharge, No ear pain Respiratory: No cough, No phlegm, No short of breath Cardiovascular: No chest pain, No edema Gastrointestinal: No abdominal pain, No constipation, No diarrhea, No nausea, No vomiting Genitourinary: No discharge, No dysuria : No Musculoskeletal: No back pain, No joint pain Past Idlbxfe-Gvjbjw-Hijfzh Hx Patient Social History Alcohol Use: Denies Use Recreational Drug Use: No Smoking Status: Never a Smoker Recent Foreign Travel: No Contact w/Someone Who Travel: No Recent Infectious Disease Expo: No Recent Hopitalizations: No Seasonal Allergies Seasonal Allergies: Yes Past Medical History Surgeries: Yes Adenoidectomy, Tonsillectomy Respiratory: No Asthma Cardiac: No Neurological: No Reproductive Disorders: No Sexually Transmitted Disease: No HIV/AIDS: No Genitourinary: No Gastrointestinal: No Musculoskeletal: No Endocrine: No HEENT: No Cancer: No Psychosocial: No Integumentary: No Blood Disorders: No Family Medical History Asthma 19 MOTHER FH: breast cancer MATERNAL GRANDMOTHER Kidney stone 19 MOTHER Thyroid disease 19 MOTHER G8 SISTER Asthma Physical Exam Vital Signs Vital Signs - First Documented 11/08/17 21:15 Temp 97.7 Pulse 95 Resp 16 B/P (MAP) 124/91 (102) Pulse Ox 97 O2 Delivery Room Air Capillary Refill : Less Than 3 Seconds General Appearance: No Apparent Distress, WD/WN Eyes: Bilateral Eye Normal Inspection, Bilateral Eye PERRL, Bilateral Eye EOMI HEENT: PERRL/EOMI, TMs Normal, Normal ENT Inspection, Pharynx Normal Neck: Full Range of Motion, Normal Inspection, Supple, Lymphadenopathy (L), Lymphadenopathy (R) (mild, shotty bilateral lymphadenopathy), Tender Lateral Respiratory: Chest Non Tender, Lungs Clear, Normal Breath Sounds, No Accessory Muscle Use, No Respiratory Distress Cardiovascular: Regular Rate, Rhythm, No Edema, Normal Peripheral Pulses Gastrointestinal: Normal Bowel Sounds, Non Tender, Soft Neurologic/Psychiatric: Alert, Oriented x3 Progress/Results/Core Measures Suspected Sepsis Recent Fever Within 48 Hours: No Infection Criteria Present: None New/Unexplained Altered Menta: No Sepsis Screen: No Definite Risk SIRS Temperature:97.7 Pulse: 95 Respiratory Rate: 16 Blood Pressure 124 /91 Mean: 102 Results/Orders Vital Signs/I&O 11/08/17 21:15 Temp 97.7 Pulse 95 Resp 16 B/P (MAP) 124/91 (102) Pulse Ox 97 O2 Delivery Room Air Capillary Refill : Less Than 3 Seconds Blood Pressure Mean: 102 Progress Note : Time: 22:19 Progress Note Review of her labs show she does not have HIV, tularemia, arthropod borne bacterial diseases, etc. but she does however have positive titers for [place]- Crist[place] virus. This would fit her symptoms. We have recommended she switch her Motrin out for Naprosyn and try some hot baths, heating pads and expect to see some improvement in the next week or 2. We have also counseled her against trauma to the abdomen. We have counseled her to modify her behavior for the next 6 weeks to avoid this. We have also counseled her on how to prevent spread of EBV. Departure Impression Primary Impression: Mononucleosis Disposition: 01 HOME, SELF-CARE Condition: Stable Departure-Patient Inst. Decision time for Depature: 22:22 Referrals: NO,LOCAL PHYSICIAN (PCP) Primary Care Physician Patient Instructions: [place], the Add. Discharge Instructions: Switch her ibuprofen out for Naprosyn 2 capsules twice a day. Continue everything else. Use heating pads, hot baths, massage. Expect to get better over the next couple weeks. For 6 weeks you should avoid any Trauma to the abdomen. Wear seatbelts and avoid climbing, sports or any other rough activities. [place] is spread by sharing utensils, cups or plates. All discharge instructions reviewed with patient and/or family. Voiced understanding. KIRILL MERLOS November 08, 2017 22:22
[2017-11-08 22:41] VITALS: BP 124/91
== END 2017-11-08 22:41 | disposition home or self-care (01) ==
LOC: EDUNIT# 20:23 → ER 20:25
DX: B27.90 Infectious mononucleosis, unspecified without complication (principal); J45.909 Unspecified asthma, uncomplicated; Z80.3 Family history of malignant neoplasm of breast; Z91.041 Radiographic dye allergy status; Z90.89 Acquired absence of other organs
CPT/HCPCS: 99281

== ENCOUNTER 2017-11-13 13:25 | Emergency (ER) | payer MEDICAID ==
[~2017-11-13] VITALS: Ht 170.2 cm; Wt 55.3 kg
[2017-11-13] MEDS ORDERED: NS IV 1000 ML 1,000 ML IV ONE ×2 (14:09→14:41)
--- NOTE | 2017-11-13 14:14 | ED General ---
General Chief Complaint: Skin/Wound Problems Stated Complaint: RASH,FEVER Nursing Triage Note: ARRIVED VIA AMB TO ROOM 03. STATES SHE WAS SEEN 11 DAYS AGO AND DX WITH MONO. RASH CONTINUES AND IS WORSE AND RAN A FEVER OF 100.8 THIS AM. TOOK TYLENOL AT 1230. Nursing Sepsis Screen: Possible Sepsis Risk Source of Information: Patient Exam Limitations: No Limitations History of Present Illness Date Seen by Provider: November 13, 2017 Time Seen by Provider: 14:14 Allergies and Home Medications Allergies Coded Allergies: iodine (Verified Allergy, Unknown, 11/05/17) Home Medications Amoxicillin/Potassium Clav 1 Each Tablet, 1 EACH PO BID, (Reported) Doxycycline Hyclate 100 Mg Tablet, 100 MG PO BID, (Reported) Ibuprofen 800 Mg Tablet, 800 MG PO Q8H Prescribed by: COREY BUCIO on 11/07/17 8504 Past Gqgjhvy-Xzqzjb-Msvopm Hx Patient Social History Alcohol Use: Denies Use Recreational Drug Use: No Smoking Status: Never a Smoker Recent Foreign Travel: No Contact w/Someone Who Travel: No Recent Infectious Disease Expo: No Recent Hopitalizations: No Seasonal Allergies Seasonal Allergies: Yes Past Medical History Surgeries: Yes Adenoidectomy, Tonsillectomy Respiratory: No Asthma Cardiac: No Neurological: No : No Last Menstrual Period: October 30, 2017 Reproductive Disorders: No Sexually Transmitted Disease: No HIV/AIDS: No Genitourinary: No Gastrointestinal: No Musculoskeletal: No Endocrine: No HEENT: No Cancer: No Psychosocial: No Integumentary: No Blood Disorders: No Family Medical History Asthma 19 MOTHER FH: breast cancer MATERNAL GRANDMOTHER Kidney stone 19 MOTHER Thyroid disease 19 MOTHER G8 SISTER Asthma Physical Exam Vital Signs Vital Signs - First Documented 11/13/17 13:32 Temp 98.2 Pulse 121 Resp 18 B/P (MAP) 111/77 (88) Pulse Ox 97 O2 Delivery Room Air Capillary Refill : Less Than 3 Seconds Focused Exam Lactate Level 11/13/17 14:10: Lactic Acid Level 0.76 Lactic Acid Level Laboratory Tests Test 11/13/17 14:10 Lactic Acid Level 0.76 MMOL/L (0.50-2.00) Progress/Results/Core Measures Suspected Sepsis Recent Fever Within 48 Hours: Yes Infection Criteria Present: Documented Infection New/Unexplained Altered Menta: No Sepsis Screen: Possible Sepsis Risk SIRS Temperature:98.2 Pulse: 121 Respiratory Rate: 18 Laboratory Tests 11/13/17 14:10: White Blood Count 22.2H Blood Pressure 111 /77 Mean: 88 11/13/17 14:10: Lactic Acid Level 0.76 Laboratory Tests 11/13/17 14:10: Creatinine 0.70, Platelet Count 473H, Total Bilirubin 0.3 Results/Orders Lab Results Laboratory Tests Test 11/13/17 14:10 11/13/17 15:15 Range/Units White Blood Count 22.2 H 4.3-11.0 10^3/uL Red Blood Count 4.20 L 4.35-5.85 10^6/uL Hemoglobin 11.5 11.5-16.0 G/DL Hematocrit 34 L 35-52 % Mean Corpuscular Volume 81 80-99 FL Mean Corpuscular Hemoglobin 27 25-34 PG Mean Corpuscular Hemoglobin Concent 34 32-36 G/DL Red Cell Distribution Width 13.7 10.0-14.5 % Platelet Count 473 H 130-400 10^3/uL Mean Platelet Volume 9.3 7.4-10.4 FL Neutrophils (%) (Auto) 87 H 42-75 % Lymphocytes (%) (Auto) 7 L 12-44 % Monocytes (%) (Auto) 6 0-12 % Eosinophils (%) (Auto) 0 0-10 % Basophils (%) (Auto) 0 0-10 % Neutrophils # (Auto) 19.3 H 1.8-7.8 X 10^3 Lymphocytes # (Auto) 1.5 1.0-4.0 X 10^3 Monocytes # (Auto) 1.4 H 0.0-1.0 X 10^3 Eosinophils # (Auto) 0.1 0.0-0.3 10^3/uL Basophils # (Auto) 0.1 0.0-0.1 10^3/uL Neutrophils % (Manual) 90 % Lymphocytes % (Manual) 7 % Monocytes % (Manual) 3 % Toxic Granulation 1+ Blood Morphology Comment NORMAL Erythrocyte Sedimentation Rate 37 H 0-20 MM/HR Sodium Level 138 135-145 MMOL/L Potassium Level 4.2 3.6-5.0 MMOL/L Chloride Level 106 98-107 MMOL/L Carbon Dioxide Level 22 21-32 MMOL/L Anion Gap 10 5-14 MMOL/L Blood Urea Nitrogen 15 7-18 MG/DL Creatinine 0.70 0.60-1.30 MG/DL Estimat Glomerular Filtration Rate > 60 BUN/Creatinine Ratio 21 Glucose Level 99 70-105 MG/DL Lactic Acid Level 0.76 0.50-2.00 MMOL/L Calcium Level 9.3 8.5-10.1 MG/DL Total Bilirubin 0.3 0.1-1.0 MG/DL Aspartate Amino Transf (AST/SGOT) 18 5-34 U/L Alanine Aminotransferase (ALT/SGPT) 21 0-55 U/L Alkaline Phosphatase 144 H 40-136 U/L C-Reactive Protein High Sensitivity 13.78 H 0.00-0.50 MG/DL Total Protein 7.7 6.4-8.2 GM/DL Albumin 4.0 3.2-4.5 GM/DL Serum Test, Qualitative NEGATIVE NEGATIVE Urine Color YELLOW Urine Clarity CLEAR Urine pH 6.5 5-9 Urine Specific [place] 1.020 1.016-1.022 Urine Protein 2+ H NEGATIVE Urine Glucose (UA) NEGATIVE NEGATIVE Urine Ketones 1+ H NEGATIVE Urine Nitrite NEGATIVE NEGATIVE Urine Bilirubin NEGATIVE NEGATIVE Urine Urobilinogen 4 H NORMAL MG/DL Urine Leukocyte Esterase 1+ H NEGATIVE Urine RBC (Auto) 1+ H NEGATIVE Urine RBC 0-2 /HPF Urine WBC 2-5 /HPF Urine Squamous Epithelial Cells 10-25 H /HPF Urine Crystals PRESENT H /LPF Urine Calcium Oxalate Crystals LARGE H /LPF Urine Bacteria TRACE /HPF Urine Casts NONE /LPF Urine Mucus LARGE H /LPF Urine Culture Indicated NO My Orders Orders - MICHEAL WILLAMS PA Cbc With Automated Diff (11/13/17 14:09) Comprehensive Metabolic Panel (11/13/17 14:09) Hs C Reactive Protein (11/13/17 14:09) Hcg,Qualitative Serum (11/13/17 14:09) Lactic Acid Analyzer (11/13/17 14:09) Ua Culture If Indicated (11/13/17 14:09) Blood Culture (11/13/17 14:09) Erythrocyte Sedimentation Rate (11/13/17 14:09) Saline Lock/Iv-Start (11/13/17 14:09) Chest 1 View, Ap/Pa Only (11/13/17 14:09) Ns Iv 1000 Ml (Sodium Chloride 0.9%) (11/13/17 14:09) Manual Differential (5/30/18 14:10) Ns Iv 1000 Ml (Sodium Chloride 0.9%) (11/13/17 14:41) Ceftriaxone Injection (Rocephin Injectio (11/13/17 14:45) Penicillin G Benzathine Inject (Bicillin (11/13/17 16:45) Medications Given in ED Current Medications Medications Dose Ordered Sig/Cr Route Start Time Stop Time Status Last Admin Dose Admin Ceftriaxone Sodium 1000 mg/ Sodium Chloride 50 ml @ 100 mls/hr ONCE ONCE IV 11/13/17 14:45 11/13/17 15:14 DC 11/13/17 14:58 100 MLS/HR Sodium Chloride 1,000 ml @ 0 mls/hr Q0M ONCE IV 11/13/17 14:09 11/13/17 14:12 DC 11/13/17 14:21 1,000 MLS/HR Sodium Chloride 1,000 ml @ 0 mls/hr Q0M ONCE IV 11/13/17 14:41 11/13/17 14:42 DC 11/13/17 16:01 1,000 MLS/HR Vital Signs/I&O 11/13/17 13:32 Temp 98.2 Pulse 121 Resp 18 B/P (MAP) 111/77 (88) Pulse Ox 97 O2 Delivery Room Air Capillary Refill : Less Than 3 Seconds Blood Pressure Mean: 88 Departure Communication (Admissions) 1610 d/w dr. koenig 1620 d/w dr. jackson Impression Primary Impression: Strep pharyngitis Additional Impressions: Mononucleosis [place] Disposition: HOME, SELF-CARE Condition: Improved Departure-Patient Inst. Decision time for Depature: 16:40 Referrals: COREY BUCIO MD (PCP/Family) Primary Care Physician Patient Instructions: Erythema Infectiosum (Fifth Disease) (DC), [place], the , Strep Throat (DC) Add. Discharge Instructions: All discharge instructions reviewed with patient and/or family. Voiced understanding. Medications as instructed. Resume the doxycycline and augmentin. Continue the Tylenol and Naprosyn [id number] as directed for fever and pain. Drink plenty of fluids. Rest. Follow-up with [facility] this week for recheck. They may repeat your labs and/or refer you to an infectious disease specialist for further management and evaluation. Return to the emergency department immediately for worsened symptoms or any other concerns. Scripts Ondansetron (Ondansetron Odt) 8 Mg Tab.rapdis 8 MG PO Q6H PRN for NAUSEA/VOMITING-1ST LINE, #10 TAB 0 Refills Prov: MICHEAL WILLAMS 11/13/17 MICHEAL WILLAMS November 13, 2017 14:14
[2017-11-13 14:22] LABS: BASOPHILS # (AUTO) 0.1 10^3/uL (0.0-0.1); BASOPHILS % (AUTO) 0 % (0-10); EOSINOPHILS # (AUTO) 0.1 10^3/uL (0.0-0.3); EOSINOPHILS % (AUTO) 0 % (0-10); HEMATOCRIT 34 % (35-52); HEMOGLOBIN 11.5 G/DL (11.5-16.0); LYMPHOCYTES # (AUTO) 1.5 X 10^3 (1.0-4.0); LYMPHOCYTES % (AUTO) 7 % (12-44); MEAN CORPUSCULAR HEMOGLOBIN 27 PG (25-34); MEAN CORPUSCULAR HGB CONC 34 G/DL (32-36); MEAN CORPUSCULAR VOLUME 81 FL (80-99); MEAN PLATELET VOLUME 9.3 FL (7.4-10.4); MONOCYTES # (AUTO) 1.4 X 10^3 (0.0-1.0); MONOCYTES % (AUTO) 6 % (0-12); NEUTROPHILS # (AUTO) 19.3 X 10^3 (1.8-7.8); NEUTROPHILS % (AUTO) 87 % (42-75); PLATELET COUNT 473 10^3/uL (130-400); RED CELL DISTRIBUTION WIDTH 13.7 % (10.0-14.5); WHITE BLOOD COUNT 22.2 10^3/uL (4.3-11.0)
[2017-11-13 14:39] LABS: ALANINE AMINOTRANSFERASE 21 U/L (0-55); ALKALINE PHOSPHATASE 144 U/L (40-136); BILIRUBIN,TOTAL 0.3 MG/DL (0.1-1.0); BUN/CREATININE RATIO 21; CALCIUM 9.3 MG/DL (8.5-10.1); CARBON DIOXIDE 22 MMOL/L (21-32); CHLORIDE 106 MMOL/L (98-107); GFR ESTIMATED > 60; GLUCOSE 99 MG/DL (70-105); POTASSIUM 4.2 MMOL/L (3.6-5.0); SODIUM 138 MMOL/L (135-145); TOTAL PROTEIN 7.7 GM/DL (6.4-8.2)
[2017-11-13] MEDS ORDERED: cefTRIAXone INJECTION 1,000 MG in NS (IVPB) 50 ML IV ONE (14:45)
[2017-11-13 14:46] LABS: LYMPHOCYTES % (MANUAL) 7 %; MONOCYTES % (MANUAL) 3 %; NEUTROPHILS % (MANUAL) 90 %; RBC MORPH NORMAL; TOXIC GRANULATION/VACUOLAZATIO 1+
[2017-11-13 14:51] LABS: ERYTHROCYTE SEDIMENTATION RATE 37 MM/HR (0-20)
--- NOTE | 2017-11-13 15:05 | Diagnostic Imaging Report ---
INDICATION: Rash and fever increasing in severity with recent diagnosis of mononucleosis. Also with strep throat.. TECHNIQUE: Single view chest 2:51 PM. CORRELATION STUDY: None FINDINGS: The heart size, mediastinal configuration and pulmonary vascularity are within normal limits. The lungs are clear with no consolidating infiltrate. There is no significant effusion or pneumothorax. There is suggestion of asymmetry in the breast shadows. IMPRESSION: 1. Negative for acute abnormality of the chest. Dictated by: Dictated on workstation # [id number]
[2017-11-13 15:43] LABS: BILIRUBIN,URINE NEGATIVE (NEGATIVE); CLARITY,URINE CLEAR; COLOR,URINE YELLOW; GLUCOSE, URINE (UA) NEGATIVE (NEGATIVE); KETONES,URINE 1+ (NEGATIVE); LEUKOCYTE ESTERASE ,URINE 1+ (NEGATIVE); NITRITE,URINE NEGATIVE (NEGATIVE); PH,URINE 6.5 (5-9); PROTEIN,URINE 2+ (NEGATIVE); UROBILINOGEN,URINE 4 MG/DL (NORMAL)
[2017-11-13 15:55] LABS: BACTERIA,URINE TRACE /HPF; CALCIUM OXALATE CRYSTALS,UR LARGE /LPF; RBC,URINE 0-2 /HPF
[2017-11-13] MEDS ORDERED: ONDA8TAB13 PO (16:42)
[2017-11-13] MEDS ORDERED: PEN G BENZ (BICILLIN LA) 1.2 M UN/2 ML SYR IM ONE (16:45)
[2017-11-13 17:28] VITALS: BP 117/84
== END 2017-11-13 17:28 | disposition home or self-care (01) ==
LOC: EDUNIT# 13:25 → ER 13:26
DX: J02.0 Streptococcal pharyngitis (principal); B27.90 Infectious mononucleosis, unspecified without complication; B08.4 Enteroviral vesicular stomatitis with exanthem; J45.909 Unspecified asthma, uncomplicated; Z80.3 Family history of malignant neoplasm of breast; Z91.041 Radiographic dye allergy status; Z90.89 Acquired absence of other organs
CPT/HCPCS: 36415; 71045; 80053; 81000; 83605; 84703; 85007; 85027; 85652; 86141; 87040; 96361; 96372; 96374